=== PATIENT | female | born 1995 | race Caucasian/White ===

== ENCOUNTER 2016-08-20 09:41 | Emergency (ER) | payer OTHER ==
[~2016-08-20] VITALS: Ht 160 cm; Wt 69.1 kg
[2016-08-20 10:15] VITALS: BP 121/82; PULSE 93; RESP 10; O2SAT 97
--- NOTE | 2016-08-20 10:19 | ED.REPORT ---
HPI-Abd Pain F Under 40 Date of Service Aug 20, 2016 ED Provider: Dr. Alberto Block M.D. A 21 year old female presents to the ED with LLQ abdominal pain and vomiting onset four days ago. The pain and nausea has prevented her from sleeping and is exacerbated with eating. The last time she vomited was 0400 this morning. She also reports subjective fever and diarrhea with hematochezia onset yesterday. She denies hematemesis, dysuria, or vaginal symptoms. The patient was seen in Urgent Care two days ago where she was found to have a high white count and was scheduled for a CT, which she missed. Her symptoms were relieved with prescribed ondansetron but worsened again and she was seen in the ED at [facility] yesterday where she received an abdominal CT. The patient feels better today. Nursing Notes Stated Complaint: OVARIAN CYST Chief Complaint: Female Abdominal Pain Nursing Notes Reviewed: Yes Allergies: Coded Allergies: No Known Allergies (Unverified Allergy, Unknown, 08/20/16) Scheduled PRN Ondansetron ODT (Zofran ODT) 4 Mg Tablet 4 MG PO Q4H PRN PRN For Nausea General Time Seen by MD: 10:19 Chief Complaint Abdominal pain, Vomiting moderate Hx Obtained From: Patient Arrived By: Walk-in Onset Occurred: 4 days ago Symptom Duration: Since onset Progression since Onset: Constant Location: : LLQ Quality: Painful Severity: Current: Moderate Severity: Maximum: Moderate Associated with: Reports: Diarrhea, Fever, Hematochezia, Nausea, Vomiting, Denies: Hematemesis, Urinary tract symptoms Status: Negative - ED urine HCG Sexual History / Control: Reports control pills, Reports Pt is sexually active, Denies History of STD Exacerbated by: Eating Relieved by: Prescription meds Recent Healthcare: Recent doctor visit, Recent testing Similar Sx Previous: No Past Medical History Past Medical History Allergies Past Surgical History None reported Smoking History Never Smoker Social History Rarely drinks alcohol Drug Use: Denies drug use Occupation Works in [employer] Ambulatory Status Independent Review of Systems Constitutional: Reports: Fever (Subjective) GI: Reports: Abdominal pain (LLQ), Diarrhea, Hematochezia, Nausea, Vomiting, Denies: Hematemesis Female: Reports: Dysuria, Denies: Vaginal bleeding - abnl, Vaginal discharge Complete sys rev & neg: except as marked. Psychiatric: Reports: Insomnia Physical Exam Initial Vital Signs Vital Signs (First) Date Time Temp Pulse Resp B/P Pulse Ox O2 Delivery O2 Flow Rate FiO2 08/20/16 10:15 36.8 93 10 121/82 97 Room Air Initial VS: Reviewed Head / Eyes: Atraumatic, Normocephalic ENT: Conjunctiva normal, No scleral icterus Neck: Supple, Full range of motion Skin: Warm, Dry, No cyanosis Neurologic: Alert, Oriented, Nonfocal Psychiatric: Mood/affect normal, Behavior normal, Normal thought content General/Constitutional: Awake, Alert, No acute distress Respiratory / Chest: Breath sounds NL, Breath sounds = bilat, No respiratory distress Cardiovascular: Heart rate NL, Regular rhythm, Heart sounds NL Abdomen: Soft Tenderness/Guarding/Rebound: Positive: Tender LLQ... Back: Full range of motion, Non-tender Interpretation & Diagnostics ABDOMINAL CT W/ IV CONTRAST at [facility] 08/19/16: Mildly dilated fluid-filled loops of small bowel with fluid in the ascending colon suggestive of enterocolitis. Appendix at the upper limits of normal. Correlate clinically stephanie bilateral ovarian cystic changes with mild free fluid the pelvis. 08/19/16 Metabolic panel, urinalysis, and CBC normal Hemoglobin 13.1 and Hematocrit 39.7 08/18/16 Hemoglobin 13.6 and Hematocrit 41.9 US PELVIC SONOGRAM + TRANSVAGINAL SONOGRAM 08/20/16 IMPRESSION: 1. Small bilateral ovarian follicles as well as a probable follicular simple cyst in the left ovary. No adnexal masses. 2. Moderate free fluid in the pelvic cul-de-sac as well as complex free fluid in the right adnexa which are nonspecific but may reflect sequelae of a ruptured cyst. Dictated by: Thanh Fernandez M.D. on 08/20/2016 at 12:38 Lab Results Interpretation Result Diagram: 08/20/16 1225 Test 08/20/16 12:25 08/20/16 12:40 White Blood Count 8.2th/mm3 (3.8-10.1) Red Blood Count 3.78mil/mm3 (3.90-5.20) Hemoglobin 11.9g/dL (12.0-15.6) Hematocrit 34.9% (35.0-46.0) Mean Corpuscular Volume 92.3fL (81-100) Mean Corpuscular Hemoglobin 31.5pg (27.0-35.0) Mean Corpuscular Hemoglobin Concent 34.1% (32.0-37.0) Red Cell Distribution Width 11.8% (12.3-15.4) Platelet Count 312bil/L (150-400) Neutrophils (%) (Auto) 59.0% (40-74) Lymphocytes (%) (Auto) 19.1% (14-46) Monocytes (%) (Auto) 18.1% (4-12) Eosinophils (%) (Auto) 1.0% (0-5) Basophils (%) (Auto) 0.6% (0-3) Hold Hubbard Top Tube Received (Received) Re-Eval/Medical Decision Re-Evaluation/Progress #1: Time of Eval: 12:13 Patient Status: Condition improved Re-Evaluation/Progress Note: Patient rechecked. Re-Evaluation/Progress #2: Time of Eval: 13:00 Patient Status: Condition improved Re-Evaluation/Progress Note: Discussed with patient lab results, diagnosis, and plan for discharge. Follow-up and return to the ER instructions given. Patient agrees with plan for care and all questions were addressed. Re-Evaluation/Progress #3: Time of Eval: 13:00 Re-Evaluation/Progress Note: Discussed patient's case with her mother over the phone. Consultation #1: Referral / Consult Name: Mikie Hogue MD Call Returned at: 12:10 Care Giver: Agrees with eval, Agrees with plan Note: PATTERN MECHANIC: Recommends recheck CBC today as well as a gonorrhea and chlamydia urine test Consultation #2: Referral / Consult Name: Ethan Verdugo MD Call Returned at: 12:46 Care Giver: Agrees with eval, Agrees with plan Note: Updated with patient's case. He felt that outpatient follow-up was appropriate based on the information I had provided. I am in agreement with this. Counseled Regarding: Diagnosis, Lab results, Need for follow-up, When/why to return to ED Discharge & Departure Primary Impression: Hemorrhagic ovarian cyst Disposition: Home Discharge Condition All VS Reviewed: Yes Condition: Improved Patient Instructions: Ovarian Cyst (ED) Additional Instructions: Thank you for entrusting us with your care. Thank you probably had 2 things. You probably had a stomach flu but also significantly you have a hemorrhagic ovarian cyst. Your blood counts were obtained these past 3 days and your results are below. Sometimes this needs to be treated with surgery but I do not think that he needs surgery at this time. You need immediate reevaluation if you faint or excessively lightheaded or your abdominal pain is much worse. Use ondansetron as needed for nausea, an additional prescription of this was sent electronically to the right aid at [facility]. Use ibuprofen 800 mg every 8 hours as needed for pain. On 08/18/16 your H&H was 13.6 and 41.9, on 08/19/16 your H&H was 13.1 and 39.7, and today (08/20/16) your H& H is 11.9 and 34.9. You have an appointment with Dr. Van at [facility] on Tuesday (). You should check in at 8:15 AM. Return to the ER with any new or worsening symptoms. Referrals: Natasha Chow MD (PCP) [place] Attestation Portions of this note were transcribed by Zehra Martel. I, Dr. Block, personally performed the history, physical exam, and medical decision-making; I reviewed and confirmed the accuracy of the information in the transcribed note. Signed by: Mario Thompson, 08/20/2016, 13:52 copies to: Natasha Chow MD, Kirk H MD Aug 20, 2016 10:19 ZEHRA MARTEL Aug 20, 2016 10:52
[2016-08-20 12:37] LABS: BASOPHILS % (AUTO) 0.6 % (0-3); MONOCYTES % (AUTO) 18.1 % (4-12); Mean Corpuscular Hemoglobin 31.5 pg (27.0-35.0); Mean Corpuscular Volume 92.3 fL (81-100); Platelet Count 312 bil/L (150-400)
--- NOTE | 2016-08-20 12:40 | DRSVH ---
PROCEDURE: US PELVIC SONOGRAM + TRANSVAGINAL SONOGRAM INDICATIONS: LLQ pain TECHNIQUE: Real-time scanning was performed of the pelvic organs, with image documentation. Additional endovagi nal scanning was necessary due to incomplete visualization of the adnexal and endometrial structures by transabdominal scanning. COMPARISON: Outside Film, CT, CT ABD PELVIS W CON, 08/19/2016, 15:00. FINDINGS: Transabdominal scanning: Limited scanning through the kidneys shows no hydronephrosis. There is a m oderate amount of free fluid in the pelvic cul-de-sac. There is also a moderate amount of fluid in t he right adnexa with internal echoes. Endovaginal scanning: Uterus: Uterus is normal in size at 6.8 x 3.2 x 4.0 cm. The endometrium measures 5 mm in combined t hickness. Ovaries: The right ovary measures 2.1 x 1.3 x 1.3 cm and the left ovary measures 2.8 x 1.7 x 1.3 cm. There are scattered ovarian follicles bilaterally as well as a 1.4 cm cyst in the left ovary likely representing a follicular cyst. No adnexal masses. IMPRESSION: 1. Small bilateral ovarian follicles as well as a probable follicular simple cyst in the left ovary. No adnexal masses. 2. Moderate free fluid in the pelvic cul-de-sac as well as complex free fluid in the right adnexa wh ich are nonspecific but may reflect sequelae of a ruptured cyst. Dictated by: Thanh Fernandez M.D. on 08/20/2016 at 12:38 Approved by: Thanh Fernandez M.D. on 08/20/2016 at 12:38
[2016-08-20] MEDS ORDERED: ONDA4TAB9 PO (13:07)
[2016-08-20 13:35] VITALS: BP 122/83; PULSE 100; RESP 16
== END 2016-08-20 13:36 | disposition home or self-care (01) ==
LOC: SED 09:41
DX: N83.202 Unspecified ovarian cyst, left side (principal)